=== PATIENT | male | born 1955 | race Caucasian/White ===

== ENCOUNTER 2020-08-19 13:29 | Day surgery (SDC) | payer OTHER ==
[~2020-08-19] VITALS: Ht 182.9 cm; Wt 80.0 kg
[~2020-08-19 13:29] MED LIST: BUPIVACAINE/PF 0.5% ONE; EPINEPHRINE 1 MG/ML, 1ML ONE
[2020-08-19] MEDS ORDERED: HYDR-3240 PO (14:09)
[2020-08-19] MEDS ORDERED: ZOLP-413 PO (14:09)
[2020-08-19] MEDS ORDERED: CHLORHEXIDINE 15 ML UDC MM STA (14:13)
[2020-08-19 14:16] VITALS: BP 126/71
[2020-08-19] MEDS ORDERED: LACTATED RINGERS 1,000 ML IV SCH (14:30)
[2020-08-19] MEDS ORDERED: MIDAZOLAM 1 MG/ML, 2ML ONE (14:36)
[2020-08-19] MEDS ORDERED: FENTANYL PF 100 MCG/2ML ONE (14:36)
[2020-08-19] MEDS ORDERED: BUPIVACAINE/PF 0.5% ONE (14:59)
[2020-08-19] MEDS ORDERED: EPINEPHRINE 1 MG/ML, 1ML ONE (14:59)
[2020-08-19] MEDS ORDERED: HYDROcodone/APAP 5/325 TABLET PO SCH (15:00)
[2020-08-19] MEDS ORDERED: TAMS-11 PO (15:21)
[2020-08-19] MEDS ORDERED: HYDROmorphone 1 MG/ML, 1ML INJ IVPush PRN (16:30)
[2020-08-19] MEDS ORDERED: LORazepam 2 MG/ML, 1ML IVPush PRN (16:30)
[2020-08-19] MEDS ORDERED: ACETAMINOPHEN 325 MG TABLET PO PRN (16:30)
[2020-08-19] MEDS ORDERED: OXYcodone 5 MG/5 ML ORAL.SOL UDC PO PRN (16:30)
[2020-08-19] MEDS ORDERED: ONDANSETRON 2MG/ML, 2ML IVPush PRN (16:30)
[2020-08-19] MEDS ORDERED: METHOCARBAMOL 1,000 MG in DEXTROSE 5% 100 ML IV PRN (16:30)
[2020-08-19] MEDS ORDERED: PROMETHAZINE 25 MG/ML, 1ML IVPush PRN (16:30)
[2020-08-19] MEDS ORDERED: PROMETHAZINE 25 MG SUPP PR PRN (16:30)
[2020-08-19] MEDS ORDERED: FENTANYL PF 100 MCG/2ML IV PRN (16:30)
[2020-08-19] MEDS ORDERED: PROPOFOL 10 MG/ML, 20ML ONE (16:40)
[2020-08-19] MEDS ORDERED: ONDANSETRON 2MG/ML, 2ML ONE (16:40)
[2020-08-19] MEDS ORDERED: CEFAZOLIN 1,000 MG ONE (16:40)
[2020-08-19] MEDS ORDERED: DEXAMETHASONE 4 MG/ML, 1ML ONE (16:40)
[2020-08-19] MEDS ORDERED: ZOLPIDEM 5MG TABLET PO SCH (21:00)
== END 2020-08-19 18:25 | disposition home or self-care (01) ==
LOC: OR 13:29
PROVIDERS: ATTEND Orthopaedic Surgery
DX: S46.212A Strain of muscle, fascia and tendon of other parts of biceps, left arm, initial encounter (principal); X58.XXXA Exposure to other specified factors, initial encounter; Y93.89 Activity, other specified; Y92.89 Other specified places as the place of occurrence of the external cause; Y99.8 Other external cause status; Z20.828 Contact with and (suspected) exposure to other viral communicable diseases; Z79.899 Other long term (current) drug therapy; Z91.048 Other nonmedicinal substance allergy status; Z72.89 Other problems related to lifestyle; Z91.018 Allergy to other foods
CPT/HCPCS: 24342; 87635; 93005; C1713; J0171; J0690; J1100; J2250; J2405; J2704; J3010